=== PATIENT | male | born 1970 | race Hispanic/Latino ===

== ENCOUNTER 2019-04-06 16:38 | Emergency (ER) | payer SELFPAY ==
[2019-04-06] MEDS ORDERED: Sulfameth/Trimethoprim DS 800-160mg TAB ONE (17:53)
[2019-04-06] MEDS ORDERED: Ketorolac Tromethamine 30 MG/ML VIAL ONE (17:53)
[2019-04-06] MEDS ORDERED: Cephalexin 250 MG CAP ONE (17:53)
== END 2019-04-06 18:05 | disposition home or self-care (01) ==
LOC: MADERS 16:38
DX: L03.811 Cellulitis of head [any part, except face] (principal)
CPT/HCPCS: 96372; 99283; J1885